=== PATIENT | male | born 1955 | race Caucasian/White ===

== ENCOUNTER → 2024-06-20 10:09 | Outpatient (REF) | payer OTHER, SELFPAY | LOC: HWRAD 10:09 | PROVIDERS: ATTENDING PHYSICIAN Nurse Practitioner Family | DX: M79.601 Pain in right arm (principal) | CPT/HCPCS: 73030 ==

== ENCOUNTER → 2024-07-02 08:46 | Outpatient (REF) | payer OTHER, SELFPAY | LOC: HWRAD 08:46 | PROVIDERS: ATTENDING PHYSICIAN Nurse Practitioner Family | DX: R63.4 Abnormal weight loss (principal); D64.9 Anemia, unspecified; Z85.72 Personal history of non-Hodgkin lymphomas | CPT/HCPCS: 71260; 74177; Q9967 ==

== ENCOUNTER → 2024-08-29 10:17 | Outpatient (REF) | payer OTHER, SELFPAY | LOC: HWRAD 10:17 | PROVIDERS: ATTENDING PHYSICIAN Nurse Practitioner Family | DX: N18.31 Chronic kidney disease, stage 3a (principal); N32.89 Other specified disorders of bladder | CPT/HCPCS: 76770 ==

== ENCOUNTER → 2025-01-31 10:46 | Outpatient (REF) | payer OTHER, SELFPAY | LOC: HWRCS 10:46 | PROVIDERS: ATTENDING PHYSICIAN Nurse Practitioner Family | DX: R01.1 Cardiac murmur, unspecified (principal) | CPT/HCPCS: 93306 ==